=== PATIENT | female | born 1960 | race Caucasian/White ===

== ENCOUNTER → 2021-06-21 | Outpatient (CLI) | payer OTHER ==
[~2021-06-21] MED LIST: ATIVAN0.5 MG PO; CHOLESTEROL; PROVENTIL HFA6.7 G1; [UNRECOGNIZED DRUG - OTHER]
== END ==
LOC: M.CT 13:35
PROVIDERS: ATTEND Internal Medicine Cardiovascular Disease
DX: Z13.6 Encounter for screening for cardiovascular disorders (principal)